=== PATIENT | male | born 1980 | race Two or more races ===

== ENCOUNTER 2025-06-20 15:16 | Emergency (ER) | payer SELFPAY ==
[~2025-06-20] VITALS: Ht 177.8 cm; Wt 130.0 kg
--- NOTE | 2025-06-20 15:56 | ED.PDOC ---
Antionet. trauma (HPI) HPI Comments 45 y/o M, presents to the ED for CC of s/p fall. Patient reports, that he accidently feel landing onto his left side and has now been experiencing left- upper arm pain. Patient denies head injury, loss of conciseness, nausea, vomiting, or photophobia. Chief Complaint: Fall Injury Time Seen by MD: 15:45 Reviewed notes: Nurses Notes, Medications, Allergies Allergies: Coded Allergies: NO KNOWN ALLERGIES (Unverified , 06/20/25) Information Source: Patient Mode of Arrival: Ambulatory Severity: Moderate Timing: Minutes Duration: Since onset Prehospital treatment: None Location: (L) Arm Location of laceration: None Mechanism: Fall Associated signs and symtoms: None Past Medical History PAST MEDICAL HISTORY: Denies Surgical History: Denies all surgeries Family History Family History: Unknown Social History Smoker: Non-Smoker Alcohol: Denies ETOH Use Drugs: Denies Drug Use Lives In: Home Constitutional: denies: chills, diaphoresis, fatigue, fever, malaise, sweats, weakness, others EENTM: denies: blurred vision, double vision, ear bleeding, ear discharge, ear drainage, ear pain, ear ringing, eye pain, eye redness, hearing loss, mouth pain, mouth swelling, nasal discharge, nose bleeding, nose congestion, nose pain, photophobia, tearing, throat pain, throat swelling, voice changes, others Respiratory: denies: cough, hemoptysis, orthopnea, SOB at rest, shortness of breath, SOB with excertion, stridor, wheezing, others Cardiovascular: denies: chest pain, dizzy spells, diaphoresis, Dyspnea on exertion, edema, irregular heart beat, left arm pain, lightheadedness, palpitations, PND, syncope, others Gastrointestinal: denies: abdomen distended, abdominal pain, blood streaked bowels, constipated, diarrhea, dysphagia, difficulty swallowing, hematemesis, melena, nausea, poor appetite, poor fluid intake, rectal bleeding, rectal pain, vomiting, others Genitourinary: denies: burning, dysuria, flank pain, frequency, hematuria, incontinence, penile discharge, penile sore, pain, testicle pain, testicle swelling, urgency, others Neurological: denies: dizziness, fainting, headache, left sided numbness, left sided weakness, numbness, paresthesia, pre-existing deficit, right sided numbness, right sided weakness, seizure, speech problems, tingling, tremors, weakness, others Musculoskeletal: reports: others (left upper arm pain); denies: back pain, gout, joint pain, joint swelling, muscle pain, muscle stiffness, neck pain Integumetry: denies: bruises, change in color, change in hair/nails, dryness, laceration, lesions, lumps, rash, wounds, others Allergic/Immunocompromised: denies: Difficulty Healing, Frequent Infections, Hives, Itching, others Hematologic/Lymphatic: denies: anemia, blood clots, easy bleeding, easy bruising, swollen glands, others Endocrine: denies: excessive hunger, excessive sweating, excessive thirst, excessive urination, flushing, intolerance to cold, intolerance to heat, unexplained weight gain, unexplained weight loss, others Psychiatric: denies: anxiety, bipolar disorder, depression, hopeless, panic disorder, schizophrenia, sleepless, suicidal, others All Other Systems: Reviewed and Negative Was a procedure done? Was a procedure done?: No Differential Diagnosis Multiple Trauma: Fractures, Other (dislocation) X-Ray, Labs, Meds, VS Vital Signs Date Time Temp Pulse Resp B/P (MAP) Pulse Ox O2 Delivery O2 Flow Rate FiO2 06/20/25 15:18 98.3 67 18 147/89 96 98.3 Time of 1ST Reevaluation: 16:15 Reevaluation 1ST: Unchanged Patient Education/Counseling: Diagnosis, Treatment Family Education/Counseling: No Family Present Critical Care Note Critical Care Time?: No Stability Stability form required: No Heart Score Heart Score: Heart Score Response (Comments) Value History N/A 0 EKG N/A 0 Age N/A 0 Risk Factors N/A 0 Troponin N/A 0 Total 0 I personally scribed for KIM SARMIENTO MD ([email or web address]) on 06/20/25 at 15:56. Electronically submitted by Katie Julian ([email or web address]). I personally scribed for KIM SARMIENTO MD ([email or web address]) on 06/20/25 at 15:57. Electronically submitted by Katie Julian ([email or web address]). KIM SARMIENTO MD Jun 20, 2025 15:56
--- NOTE | 2025-06-20 16:02 | ED.PDOC ---
Leonid. trauma (HPI) HPI Comments This patient is a morbidly obese 45 y/o M who presents to the ED for CC of s/p fall injury. Patient reports, he was standing on a trailer when he fell off landing approximately 6ft onto to the ground with his right side. Following trama, patient c/o pain to his right should and inability to move his right upper extremity. patient denies head injury, loss of conciseness, headache, nausea, or vomiting. No other symptoms or modifying factors are present at this time. Patient was hypotensive at arrival. Chief Complaint: Fall Injury Time Seen by MD: 15:45 Reviewed notes: Nurses Notes, Medications, Allergies Allergies: Coded Allergies: NO KNOWN ALLERGIES (Unverified , 06/20/25) Information Source: Patient, Spouse Mode of Arrival: Ambulatory Severity: Moderate Timing: Minutes Duration: Since onset Prehospital treatment: None Location: (R) Shoulder Mechanism: Blunt trauma, Fall Associated signs and symtoms: None Past Medical History PAST MEDICAL HISTORY: Denies Surgical History: Denies all surgeries Family History Family History: Unknown Social History Smoker: Non-Smoker Alcohol: Denies ETOH Use Drugs: Denies Drug Use Lives In: Home Constitutional: denies: chills, diaphoresis, fatigue, fever, malaise, sweats, weakness, others EENTM: denies: blurred vision, double vision, ear bleeding, ear discharge, ear drainage, ear pain, ear ringing, eye pain, eye redness, hearing loss, mouth pain, mouth swelling, nasal discharge, nose bleeding, nose congestion, nose pain, photophobia, tearing, throat pain, throat swelling, voice changes, others Respiratory: denies: cough, hemoptysis, orthopnea, SOB at rest, shortness of breath, SOB with excertion, stridor, wheezing, others Cardiovascular: denies: chest pain, dizzy spells, diaphoresis, Dyspnea on exertion, edema, irregular heart beat, left arm pain, lightheadedness, palpitations, PND, syncope, others Gastrointestinal: denies: abdomen distended, abdominal pain, blood streaked bowels, constipated, diarrhea, dysphagia, difficulty swallowing, hematemesis, melena, nausea, poor appetite, poor fluid intake, rectal bleeding, rectal pain, vomiting, others Genitourinary: denies: burning, dysuria, flank pain, frequency, hematuria, incontinence, penile discharge, penile sore, pain, testicle pain, testicle swelling, urgency, others Neurological: denies: dizziness, fainting, headache, left sided numbness, left sided weakness, numbness, paresthesia, pre-existing deficit, right sided numbness, right sided weakness, seizure, speech problems, tingling, tremors, weakness, others Musculoskeletal: reports: others (right shoulder pain); denies: back pain, gout, joint pain, joint swelling, muscle pain, muscle stiffness, neck pain Integumetry: denies: bruises, change in color, change in hair/nails, dryness, laceration, lesions, lumps, rash, wounds, others Allergic/Immunocompromised: denies: Difficulty Healing, Frequent Infections, Hives, Itching, others Hematologic/Lymphatic: denies: anemia, blood clots, easy bleeding, easy bruising, swollen glands, others Endocrine: denies: excessive hunger, excessive sweating, excessive thirst, excessive urination, flushing, intolerance to cold, intolerance to heat, unexplained weight gain, unexplained weight loss, others Psychiatric: denies: anxiety, bipolar disorder, depression, hopeless, panic disorder, schizophrenia, sleepless, suicidal, others All Other Systems: Reviewed and Negative Physical Exam General Appearance: Moderate Distress (Due to right shoulder pain concerns.), Obese HEENT: Normal ENT Inspection, Pharynx Normal, TMs Normal Neck: Full Range of Motion, Non-Tender, Normal, Normal Inspection Respiratory: Chest Non-Tender, Lungs Clear, No Accessory Muscle Use, No Respiratory Distress, Normal Breath Sounds Cardiovascular: No Edema, No JVD, No Murmur, No Gallop, Normal Peripheral Pulses, Regular Rate/Rhythm Breast Exam: Deferred Gastrointestinal: No Organomegaly, Non Tender, No Pulsatile Mass, Normal Bowel Sounds, Soft Genitalia: Deferred Pelvic: Deferred Rectal: Deferred Extremities: Other (Patient displays of significant anterior lateral shoulder tenderness to palpation. Significant reduced range of motion. Patient appears to have an anterior dislocation. Distal neurovascularly intact.) Neurologic: Alert Cerebellar Function: NOT DONE Reflexes: NOT DONE Skin: Dry, Normal Color, Warm Lymphatic: No Adenopathy Was a procedure done? Was a procedure done?: No Differential Diagnosis Multiple Trauma: Fractures, Other (dislocation) X-Ray, Labs, Meds, VS Vital Signs Date Time Temp Pulse Resp B/P (MAP) Pulse Ox O2 Delivery O2 Flow Rate FiO2 06/20/25 16:40 58 12 130/75 06/20/25 16:09 60 14 156/95 06/20/25 15:18 98.3 67 18 147/89 96 98.3 Current Medications Medications (Trade) Dose Ordered Sig/Scott Route Start Time Stop Time Status Last Admin Hydromorphone HCl (Dilaudid Injection) 1 mg ONCE ONCE IM 06/20/25 15:30 06/20/25 15:32 DC 06/20/25 16:09 Ketorolac Tromethamine (Toradol Injection) 30 mg ONCE ONCE IM 06/20/25 15:30 06/20/25 15:32 DC 06/20/25 16:[address] [address] Ph: [phone] DIAGNOSTIC IMAGING Diagnostic Imaging Report : [id number] Signed PATIENT: SHEFALI IBANEZDIEGOT: [id number] UNIT: [id number] : 1980 LOC: ER ROOM / BED: / AGE / SEX: 45 / M ADM STATUS: REG ER SERVICE 1530 ORDERING PHYSICIAN: CAMRON REESE PAC PROCEDURE(s): RSHD2 - R SHOULDER 2+ VIEW XRAY REASON: Trauma/fall ORDER NUMBER(s): [id number], ACCESSION NUMBER(s): [id number] Indication: Trauma/fall Technique: XY R SHOULDER 2+ VIEW XRAYXY Comparison: None FINDINGS/IMPRESSION: Anterior dislocation of the right shoulder/ humeral head. There is Hill-Sachs fracture deformity. [id number] right AC joint arthrosis. ATED BY: CARIDAD CHADWICK MD DICTATED DATE/TIME: 06/20/251628 SIGNED BY: CARIDAD CHADWICK MD SIGNED DATE/TIME: 06/20/251628 CC: [address] [address] Ph: [phone] DIAGNOSTIC IMAGING Diagnostic Imaging Report : [id number] Signed PATIENT: SHEFALI IBANEZT: [id number] UNIT: [id number] : 1980 LOC: ER ROOM / BED: / AGE / SEX: 45 / M ADM STATUS: REG ER SERVICE 29 ORDERING PHYSICIAN: CAMRON REESE PAC PROCEDURE(s): RHUM - R HUMERUS XRAY REASON: Trauma/fall ORDER NUMBER(s): [id number], ACCESSION NUMBER(s): [id number] CLINICAL INDICATION: Trauma/fall TECHNIQUE: 3 radiographic views of the right humerus were obtained. Comparison: None FINDINGS/IMPRESSION: Minimally displaced fracture proximal right humerus is noted. Can not exclude dislocation the glenohumeral joint. ATED BY: DOROTHY DUNLAP Jr., DO DICTATED DATE/TIME: 06/20/251620 SIGNED BY: DOROTHY DUNLAP Jr., SIGNED DATE/TIME: 06/20/251620 CC: X-Ray, Labs, Meds, VS Comment Patient received 1 mg of Dilaudid in the lobby. Once the right shoulder anterior dislocation was confirm, I was able to relocate the shoulder without conscious sedation. Patient responded well. Imaging studies ascertain after reduction showed a minimally displaced fracture of the proximal right humerus. Patient will be sent home with a sling, pain medication and advised him to follow up with primary care for an orthopedic referral and evaluation. Time of 1ST Reevaluation: 17:28 Reevaluation 1ST: Improved Consultation: PCP Patient Education/Counseling: Diagnosis, Treatment Family Education/Counseling: Diagnosis, Treatment, No Family Present Departure 1 Departure Time of Disposition: 17:28 Impression: Primary Impression: Dislocation, shoulder closed Additional Impression: Closed fracture of right proximal humerus Disposition: 01 HOME / SELF CARE / HOMELESS Condition: Stable Additional Instructions: Advised pain medication and ice therapy and additionally, patient will need to follow up with the primary care provider for re-evaluation of shoulder and humerus concerns. If patient is unable to follow up with the primary care, contact this facility at [phone] and asked for the orthopedic department run by Dr. York for conversations related to evaluation needs. e-Prescriptions Hydrocodone-Acetaminophen (Hydrocodone Bitartrate/AC 10-325 mg) 1 Tab Tab 1 TAB PO Q8HP PRN, #20 TAB Prov: CAMRON REESE PAC 06/20/25 Ibuprofen Micronized (Ibuprofen) 800 Mg Tab 800 MG PO Q8HP PRN, #30 TAB Prov: CAMRON REESE PAC 06/20/25 Discharged With: Self, Spouse Critical Care Note Critical Care Time?: No Stability Stability form required: No Heart Score Heart Score: Heart Score Response (Comments) Value History N/A 0 EKG N/A 0 Age N/A 0 Risk Factors N/A 0 Troponin N/A 0 Total 0 I personally scribed for CAMRON REESE PAC ([email or web address]) on 06/20/25 at 16:02. Electronically submitted by Katie Julian ([employer]). I personally scribed for CARMON REESE PAC ([email or web address]) on 06/20/25 at 16:29. Electronically submitted by Katie Julian ([employer]). I personally scribed for CAMRON REESE PAC ([email or web address]) on 06/20/25 at 16:30. Electronically submitted by Katie Julian ([employer]). CAMRON REESE PAC Jun 20, 2025 16:02
[2025-06-20] MEDS: HYDROmorphone HCL 2 MG/ML VL/or syr IM ONE (16:09)
[2025-06-20] MEDS: KETOROLAC TROMETH 60MG/2ML VIAL IM ONE (16:11)
--- NOTE | 2025-06-20 16:24 | DVH ---
CLINICAL INDICATION: Trauma/fall TECHNIQUE: 3 radiographic views of the right humerus were obtained. Comparison: None FINDINGS/IMPRESSION: Minimally displaced fracture proximal right humerus is noted. Can not exclude dislocation the glenohumeral joint.
--- NOTE | 2025-06-20 16:27 | DVH ---
Indication: Trauma/fall Technique: XY R SHOULDER 2+ VIEW XRAYXY Comparison: None FINDINGS/IMPRESSION: Anterior dislocation of the right shoulder/ humeral head. There is Hill-Sachs fracture deformity. [id number] right AC joint arthrosis.
[2025-06-20 16:40] VITALS: PULSE 58; RESP 12; TEMP 98.6; O2SAT 97
--- NOTE | 2025-06-20 17:13 | DVH ---
EXAM: XY R SHOULDER 1V XRAY INDICATION: Postreduction TECHNIQUE: 1 views of the right shoulder COMPARISON: XY R HUMERUS XRAY on DOS: 06/20/25 FINDINGS/IMPRESSION: Successful closed reduction. No visualized acute fracture plane.
[2025-06-20] MEDS ORDERED: HYDR-4798 PO (17:30)
[2025-06-20] MEDS ORDERED: IBUP-1455 PO (17:30)
[2025-06-20 18:00] VITALS: BP 144/75; PULSE 63; RESP 11; O2SAT 98
== END 2025-06-20 18:45 | disposition home or self-care (01) ==
LOC: ER 15:20
DX: S43.014A Anterior dislocation of right humerus, initial encounter (principal); S42.201A Unspecified fracture of upper end of right humerus, initial encounter for closed fracture; E66.01 Morbid (severe) obesity due to excess calories; W19.XXXA Unspecified fall, initial encounter; Y93.89 Activity, other specified; Y92.89 Other specified places as the place of occurrence of the external cause; Y99.8 Other external cause status; Z68.41 Body mass index [BMI] 40.0-44.9, adult
CPT/HCPCS: 23650; 73020; 73030; 73060; 96372; 99285; J1171; J1885